=== PATIENT | female | born 1980 | race Caucasian/White ===

== ENCOUNTER 2018-03-13 10:19 | Emergency (ER) | payer OTHER ==
--- NOTE | 2018-03-13 10:47 | ED ---
General Adult HPI - General Chief complaint: Skin/Abscess/Foreign Body Stated complaint: Lump on abd.pain Time Seen by Provider: 03/13/18 10:38 Source: patient, RN notes reviewed Mode of arrival: ambulatory Limitations: no limitations - History of Present Illness Initial comments: Patient 37-year-old female presented to the emergency room today with a chief complaint of upper respiratory symptoms times one week. Does admit to congestion. Minimal cough. States that there is yellow drainage. Patient doesn't attend has been some improvement. She's been around other people with similar symptoms. Patient also admits that she's noticed a bump middle of the abdomen. Does admit to a history of a laparoscopic cholecystectomy. The bump that she feels is over the previous incision site. Patient states worse when she stands up she notices it but is not particularly painful. Patient denies any recent fever, chills, shortness of breath, chest pain, back pain, nausea or vomiting, numbness or tingling, dysuria or hematuria, constipation or diarrhea, headaches or visual changes, or any other complaints. - Related Data Previous Rx's Medication Instructions Recorded Fluticasone Propionate [Flonase 1 - 2 spray EA NOSTRIL DAILY 5 03/13/18 Allergy Relief] Days ml Loratadine [Claritin] 10 mg PO DAILY 20 Days tab 03/13/18 Pseudoephedrine HCl [Sudafed] 2 tab PO Q6H 7 Days tab 03/13/18 Allergies Allergy/AdvReac Type Severity Reaction Status Date / Time No Known Allergies Allergy Verified 03/13/18 10:33 Review of Systems ROS Statement: Those systems with pertinent positive or pertinent negative responses have been documented in the HPI. ROS Other: All systems not noted in ROS Statement are negative. Past Medical History Past Medical History: No Reported History History of Any Multi-Drug Resistant Organisms: None Reported Past Surgical History: Back Surgery, Section, Cholecystectomy, Tonsillectomy Past Psychological History: ADD/ADHD, Anxiety, Bipolar, Depression, PTSD Smoking Status: Current every day smoker Past Alcohol Use History: None Reported Past Drug Use History: Heroin General Exam - General Exam Comments Initial Comments: General: The patient is awake and alert, in no distress, and does not appear acutely ill. Eye: Pupils are equal, round and reactive to light, extra-ocular movements are intact. No nystagmus. There is normal conjunctiva bilaterally. No signs of icterus. Ears, nose, mouth and throat: There are moist mucous membranes and no oral lesions. Neck: The neck is supple, there is no tenderness or JVD. Cardiovascular: There is a regular rate and rhythm. No murmur, rub or gallop is appreciated. Respiratory: Lungs are clear to auscultation, respirations are non-labored, breath sounds are equal. No wheezes, stridor, rales, or rhonchi. Gastrointestinal: Patient does have incision site midline. No hernia appreciated. Abdomen soft nontender. Musculoskeletal: Normal ROM, no tenderness. Sensation intact. Neurological: A&O x 3. CN II-XII intact, There are no obvious motor or sensory deficits. Coordination appears grossly intact. Speech is normal. Skin: Skin is warm and dry and no rashes or lesions are noted. Psychiatric: Cooperative, appropriate mood & affect, normal judgment. Limitations: no limitations Course Vital Signs 03/13/18 10:31 Temperature 98.3 F Pulse Rate 77 Respiratory 16 Rate Blood Pressure 115/62 O2 Sat by Pulse 98 Oximetry Medical Decision Making - Medical Decision Making Patient advised following up with surgeon about abdominal pain. Advised possible small hernia. We treated for a viral upper respiratory infection with Flonase, Sudafed, Disposition Clinical Impression: URI (upper respiratory infection) Disposition: HOME SELF-CARE Condition: Good Instructions: Upper Respiratory Infection (DC) Additional Instructions: Please use medication as discussed. Please follow-up with family doctor in the next 2 days of symptoms have not improved. Please return to emergency room if the symptoms increase or worsen or for any other concerns. Prescriptions: Fluticasone Propionate [Flonase Allergy Relief] 1 - 2 spray EA NOSTRIL DAILY 5 Days ml Loratadine [Claritin] 10 mg PO DAILY 20 Days tab Pseudoephedrine HCl [Sudafed] 2 tab PO Q6H 7 Days tab Is patient prescribed a controlled substance at d/c from ED?: No Referrals: Nonstaff,Physician [Primary Care Provider] - 1-2 days Time of Disposition: 10:46
[2018-03-13 11:13] VITALS: BP 118/64; PULSE 78; RESP 18; TEMP 98.7
== END 2018-03-13 11:13 | disposition home or self-care (01) ==
LOC: EC 10:19
DX: J06.9 Acute upper respiratory infection, unspecified (principal); R10.9 Unspecified abdominal pain; R19.00 Intra-abdominal and pelvic swelling, mass and lump, unspecified site; F17.200 Nicotine dependence, unspecified, uncomplicated; Z90.79 Acquired absence of other genital organ(s); Z90.89 Acquired absence of other organs
CPT/HCPCS: 99283